=== PATIENT | male | born 1940 | race Caucasian/White ===

== ENCOUNTER 2025-01-25 09:51 | Observation (INO) | payer OTHER, SELFPAY ==
[2025-01-25] VITALS (36 sets, daily range): BP systolic 104–165; BP diastolic 41–123; PULSE 49–84; RESP 13–24; TEMP 35.9–36.5; O2SAT 83–99
--- NOTE | 2025-01-25 09:45 | RT.EKG_ITS ---
APPROVED REPORT Exam: Resting ECG Reason for Exam: possible stroke Patient Location: E HR:57 bpm ECG Measurements Heart Rate 57 AXIS NC [id number] P [id number] QRSd 94 QRS 82 QT [id number] T 90 QTc 0 Conclusion Atrial fibrillation...? atrial activity Anteroseptal infarct, age indeterminate...Q >35mS, T neg, V1-V2
--- NOTE | 2025-01-25 09:45 | DI.CT_ITS ---
Exam(s) CT BRAIN NECK CTA EXAM: CT BRAIN NECK CTA CLINICAL HISTORY: headache with right sided deficit at 830 am. TECHNIQUE: Imaging Protocol: Axial CT angiography was performed with multi-slice acquisition and mu lti-planar and/or 3D reconstructions. CONTRAST MATERIAL: Intravenous: Omnipaque 350 contrast volume:70 mL COMPARISON: No exams were available for comparison FINDINGS: CT Head W/O and W: Ventricles and Extra axial spaces: Normal in size and morphology for the patient's age. Incidental no te is made of a cavum septum pellucidum which is a normal variant. Hemorrhage: None. Cerebral parenchyma: There are areas of decreased attenuation in the white matter consistent with chr onic microvascular ischemic disease. No acute mass effect is visualized. Midline shift: None. Brainstem/Cerebellum: Normal. Calvarium: Normal. Visualized Paranasal sinuses/Mastoids: There are mucous retention cysts seen in the maxillary sinuses bilaterally. Soft Tissues: Unremarkable. Enhancement: Unremarkable. CTA Neck W: Common Carotid: Right: No dissection, occlusion or significant stenosis. Left: No dissection, occlusion or significant stenosis. External Carotid: Right: No occlusion or significant stenosis. Left: No occlusion or significant stenosis. Internal Carotid: Right: No dissection, occlusion or significant stenosis. Atherosclerotic calcification is seen in th e proximal internal carotid artery. Left: No dissection, occlusion or significant stenosis. Atherosclerotic calcification is seen in the proximal internal carotid artery. 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 Left: No dissection, occlusion or significant stenosis. Atherosclerotic calcification is seen at the origin of the left vertebral artery. Lung Apices: Normal. Bones: Within normal limits for the patient's age. Soft Tissues: Normal. Thyroid gland: There is a 1.5 x 1 cm nodule in the right thyroid gland. Nonemergent thyroid ultrasoun d is recommended for further evaluation. CTA Brain W: Internal Carotid Arteries: There is mild atherosclerotic calcifications seen in the cavernous portion of the internal carotid arteries. No aneurysm or occlusion or significant stenosis is present. Anterior Cerebral Arteries: Right: No aneurysm, occlusion or significant stenosis. Left: No aneurysm, occlusion or significant stenosis. Middle Cerebral Arteries: Right: No aneurysm, occlusion or significant stenosis. Left: No aneurysm, occlusion or significant stenosis. Posterior Cerebral Arteries: Right: No aneurysm, occlusion or significant stenosis. Left: No aneurysm, occlusion or significant stenosis. Vertebral Arteries: Right: No aneurysm, occlusion or significant stenosis. Left: No aneurysm, occlusion or significant stenosis. Basilar Artery: No aneurysm, occlusion or significant stenosis. IMPRESSION: 1. No large vessel occlusion or significant stenosis on the CT angiography of the head. 2. No acute intracranial process. 3. 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 4. Right thyroid nodule. Nonemergent thyroid ultrasound is recommended for further evaluation. Unexpected findings RADIATION DOSE DELIVERED: 2,264.97mGy.cm Total DLP DATA REPOSITORY: All CT scans at this facility are submitted to the National Radiology Data Registry (NRDR) Dose Index Registry (DIR) with the [employer] (ACR). RADIATION OPTIMIZATION: All CT scans at this facility use at least one of these dose optimization te chniques: automated exposure control; mA and/or kV adjustment per patient size (includes targeted exa ms where dose is matched to clinical indication); or iterative reconstruction.
--- NOTE | 2025-01-25 09:58 | DI.RAD_ITS ---
Exam(s) XR CHEST 1V IN DI DEPT EXAM: XR CHEST 1V IN DI DEPT CLINICAL HISTORY: amjs TECHNIQUE: 2D digital imaging was performed of the chest. One image was obtained. An AP view was ob tained. COMPARISON: No exams were available for comparison FINDINGS: MEDIASTINUM: Normal. HEART: Normal. PULMONARY VASCULATURE: Normal. LUNGS: No focal consolidating infiltrates. PLEURAL SPACE: No pleural effusion or pneumothorax. BONE:Within normal limits for the patient's age. OTHER FINDINGS:Normal. IMPRESSION: No acute pulmonary findings. DATA REPOSITORY: RADIATION DOSE DELIVERED:
[2025-01-25] MEDS: Omnipaque 350 MG/ML 100 ML BTL IJ (10:13)
[2025-01-25 10:15] LABS: Abs Immature Grans 0.09 10^3/uL (0.0-0.06); Absolute Basophil Count 0.06 10^3/uL (0.0-0.2); Absolute Eosinophil Count 0.07 10^3/uL (0.0-0.7); Absolute Lymphocyte Count 1.16 10^3/uL (1.2-3.4); Absolute Monocyte Count 0.71 10^3/uL (0.1-0.8); Absolute Neutrophil Count 7.88 10^3/uL (1.2-6.7); Basophils % 0.6 %; Eosinophils % 0.7 %; HCT 48.5 % (40.0-50.0); HGB 15.9 g/dL (13.5-17.5); Immature Grans % 0.9 %; Lymphocytes % 11.6 %; MCH 31.8 pg (27.0-33.0); MCHC 32.8 % (32.0-36.0); MCV 97 fL (80-95); MPV 10.8 fL (8.0-11.0); Monocytes % 7.1 %; Neutrophils % 79.1 %; Platelet Count 141 10^3/uL (130-400); RDW 13.4 % (11.8-14.1); WBC 9.97 10^3/uL (4.4-10.8)
[2025-01-25] MEDS: Normal Saline - Diluent 50 ML VIAL IJ (10:22)
[2025-01-25 10:35] LABS: ALT 23 U/L (16-63); AST 36 U/L (15-37); Albumin 3.3 g/dL (3.4-5.0); Alkaline Phosphatase 90 U/L (46-116); Anion Gap 5.4 mmol/L (3-11); BUN 34 mg/dL (7-18); Bilirubin, Total 0.7 mg/dL (0.2-1.0); CO2 28.6 mmol/L (21.0-32.0); CREATININE 1.3 mg/dL (0.70-1.30); Calcium 9.1 mg/dL (8.5-10.1); Chloride 106 mmol/L (98-107); Estimated GFR 54.17 (mL/min/1.73m2); Glucose 113 mg/dL (74-106); Magnesium 2.3 mg/dL (1.8-2.4); Potassium 5.8 mmol/L (3.5-5.1); Sodium 140 mmol/L (136-145); TSH (W/Ref FT4) 2.48 uIU/mL (0.36-3.74); Total Protein 6.9 g/dL (6.4-8.2); Troponin I 6 ng/L (<or=76)
--- NOTE | 2025-01-25 11:11 | NUR.NOTE ---
Nursing Note:med rec done w/ [facility] telepharm
[2025-01-25 11:23] LABS: Troponin I 7 ng/L (<or=76)
[2025-01-25] MEDS: LORazepam 20 MG/10 ML VIAL IVP (11:37)
--- NOTE | 2025-01-25 11:39 | TELEP.MEDR_ITS ---
Date of service: 01/25/25 Time of Service: 11:39 Telepharmacy Home Med Rec Allergies Allergies: No Known Allergies Allergy (Unverified 01/25/25 09:57) Interview Person Interviewed: Patient and [facility] Med List Quality Quality of Interview/Accuracy of Medication List: Good Changes made to Home Medication List: ADDITIONS: All, new profile DELETIONS: N/A CHANGES: N/A Additional Notes Additional Notes: Pt states he took AM medications at home today 01/25/25 Recommended Changes Recommended Changes(reason for recommendation): None Attestation: The home medication list is now updated to the best of my knowledge and is ready to be reconciled by the provider. Please contact the TelePharmacy Medication Reconciliation Pharmacist at for any questions.
--- NOTE | 2025-01-25 11:57 | HPE_ITS ---
Date of service: 01/25/25 Time of Service: 11:58 Assessment and Plan Assessment and plan (1) Stroke: Status: Chronic Assessment and plan: CTA head and neck negative for acute finding but shows vertebral artery occlusion with reconstitution MRI negative for acute findings Martha NORTON ED provider spoke with Dr. Brown who recommends Eliquis or Xarelto, echocardiogram, ongoing monitoring Echo ordered Eliquis High intensity statin ASA discontinued A1C Lipids telemetry ortho VS x 1 PT consult (2) HTN (hypertension): Status: Chronic Assessment and plan: permissive HNT x 24 hours to SBP 160 hold Norvasc (3) Hyperkalemia: Status: Acute Assessment and plan: Lokelma X 1 for K= 5.8- EKG negative for tall peaked T wave, HR 57 Aldactone on hold Repeat level at HS (4) Atrial fibrillation: Status: Chronic Assessment and plan: On metoprolol and now on Eliquis (5) Discharge planning issues: Status: Acute Assessment and plan: Plan to d/c home in AM PT recommendations pending Eliquis script sent CM aware Spoke to Patient's daughter Cee Dalton re: plan Discussed with Dr. Dunn History of Present Illness History of Present Illness Chief Complaint: Right sided weakness Narrative: This 83 years old male patient with past medical history of hypertension, atrial fibrillation on metoprolol and not on anticoagulation, presented to the ED today with complaints of right-sided weakness. EKG showed atrial fibrillation heart rate 57 without signs of clear occlusion with negative troponin. 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 Blood work was unremarkable except for hypokalemia at 5.8, CR 1.3 without baseline available. Hospitalist was consulted by ED provider and recommended MRI and neuroconsult. MRI is completed and report and teleneuro consult are pending. The patient was admitted to the medical surgical floor for further stroke workup; ASA and statin initiated in the ED. Confirmed DNR/DNI status, [facility] Patient denied change in vision, dizziness, chest pain, shortness of breath, nausea, vomiting, diarrhea, dysuria. Patient reported feeling off this morning lasting less than 45 minutes and with total resolution of symptoms in the emergency department. Review of Systems All systems reviewed & are unremarkable except as noted in HPI and below PFSH All Active Problems (Updated 01/25/25 @ 15:58 by Caitlyn Munoz APRN) Discharge planning issues (Acute) Hyperkalemia (Acute) Brain TIA (Acute) Atrial fibrillation (Chronic) On deep vein thrombosis (DVT) prophylaxis (Acute) HTN (hypertension) (Chronic) Stroke (Chronic) Social History Smoking/Tobacco Use Status: Never Smoking risk assessment performed?: Yes Alcohol Intake: former Substance use type: does not use Housing: house Do you feel safe at home: Yes Do you feel safe in your relationship?: Yes Meds Allergies and Home Medications Allergies Allergy/AdvReac Type Severity Reaction Status Date / Time No Known Allergies Allergy Unverified 01/25/25 09:57 Home Medications ?Medication ?Instructions ?Recorded ?Confirmed ?Type amlodipine 5 mg tablet 5 mg PO DAILY 01/25/25 01/25/25 History apixaban 5 mg tablet (Eliquis) 5 mg PO BID #60 tabs 01/25/25 Rx atorvastatin 40 mg tablet 80 mg (2 x 40 mg) PO QPM #60 tabs 01/25/25 Rx capsaicin 0.025 % topical cream 1 applic topical TID 01/25/25 01/25/25 History (Arthritis-Muscle (capsaicin)) metoprolol tartrate 50 mg tablet 50 mg PO BID 01/25/25 01/25/25 History spironolactone 25 mg tablet 25 mg PO DAILY 01/25/25 01/25/25 History Exam Narrative Exam Narrative: Constitutional: 84-year-old male patient looking older than stated age, no focal deficit, intact cranial nerves II through XII, moves all 4 extremities but cooler right foot to touch pink with cap refill about 4 seconds without pain, S1-S2, irregular, no murmur, positive pulses to all 4 extremities clear lungs bilaterally with decreased bases, abdomen is nondistended, soft nontender, bowel sounds are present, Results Labs 01/25/25 10:00 01/25/25 10:00 Labs: Laboratory Results - last 24 hr 01/25/25 01/25/25 10:00 10:58 WBC 9.97 RBC 5.00 Hgb 15.9 Hct 48.5 MCV 97 H MCH 31.8 MCHC 32.8 RDW 13.4 Plt Count 141 MPV 10.8 Immature Gran % 0.9 Neutrophils % 79.1 Lymphocytes % 11.6 Monocytes % 7.1 Eosinophils % 0.7 Basophils % 0.6 Nucleated RBC % 0.0 Absolute Neutrophils 7.88 H Absolute Lymphocytes 1.16 L Absolute Monocytes 0.71 Absolute Eosinophils 0.07 Absolute Basophils 0.06 Sodium 140 Potassium 5.8 H Chloride 106 Carbon Dioxide 28.6 Anion Gap 5.4 BUN 34 H Creatinine 1.3 Est GFR (CKD-EPI 2020) 54.17 Glucose 113 H Calcium 9.1 Magnesium 2.3 Total Bilirubin 0.7 AST 36 ALT 23 Alkaline Phosphatase 90 Troponin I 6 7 Total Protein 6.9 Albumin 3.3 L TSH 2.48 Last Vital Signs Temp 35.9 C L 01/25/25 09:52 Pulse 54 L 01/25/25 11:16 Resp 21 01/25/25 11:16 BP 152/77 H 01/25/25 11:16 Pulse Ox 98 01/25/25 11:16 Time Spent Time spent with Patient: >75 minutes Time was spent: preparing to see the patient(eg.review tests), obtaining and/or reviewing separately otained hiistory, ordering medications,tests, procedures, referring, communicating with other health aged or disabled care worker, indepentently interpreting results, counseling the patient and care coordination
--- NOTE | 2025-01-25 12:20 | DI.MRI_ITS ---
Exam(s) MR BRAIN WO EXAM: MR BRAIN WO CLINICAL HISTORY: vert TECHNIQUE: Multiplanar multisequence MRI of the brain was performed. COMPARISON: CT CT BRAIN NECK CTA from 01/25/2025 FINDINGS: The examination is limited due to patient motion artifact. VENTRICLES AND EXTRA AXIAL SPACES: Normal in size and morphology for the patient's age. Incidental no te is made of a cavum septum pellucidum which is a normal variant. MIDLINE SHIFT: None. CEREBRAL PARENCHYMA: No focus of restricted diffusion to suggest acute infarct. No space-occupying le eulogio identified. HEMORRHAGE: None. BRAINSTEM/CEREBELLUM: Normal. CALVARIUM: Normal. VISUALIZED PARANASAL SINUSES/MASTOIDS:Mucous retention cysts are seen in the maxillary sinuses bilate rally. [place]: Normal flow void. PITUITARY GLAND: Unremarkable. OTHER FINDINGS: None. IMPRESSION: 1. Examination is limited by patient motion artifact. 2. No evidence of an acute infarct. DATA REPOSITORY:
--- NOTE | 2025-01-25 12:25 | ED.GENADUL_ITS ---
Discharge Plan Disposition Patient Disposition: Admit to [facility] Condition: Serious Discharge Details Clinical Impression: Brain TIA Admit Date/Time: 01/25/25 12:54 Admit Provider: Leandro Dunn Attending Provider: Leandro Dunn Primary Care Provider: Марина Quintana ED Provider: Martha Daniel Discharge Data Discharge Date/Time-TO BE ENTERED AT DEPARTURE: 01/25/25 14:14 HPI General Date/Time Provider Initiated Documentation: 01/25/25 09:57 . HPI Narrative: 84-year-old male with hypertension presents with acute alteration in mental status at 0830 hours. Experienced lightheadedness, head pressure, difficulty using right arm and speech, resolved before EMS arrival. Episode lasted ~20 minutes. No chest pain, shortness of breath, headache, or similar episodes. No falls, injuries, new medications, or chronic anticoagulation. On spironolactone. Related Data Home Medications ?Medication ?Instructions ?Recorded ?Confirmed amlodipine 5 mg tablet 5 mg PO DAILY 01/25/25 01/25/25 capsaicin 0.025 % topical cream 1 applic topical TID 01/25/25 01/25/25 (Arthritis-Muscle (capsaicin)) metoprolol tartrate 50 mg tablet 50 mg PO BID 01/25/25 01/25/25 spironolactone 25 mg tablet 25 mg PO DAILY 01/25/25 01/25/25 Allergies Allergy/AdvReac Type Severity Reaction Status Date / Time No Known Allergies Allergy Unverified 01/25/25 09:57 General Stated Complaint: CVA/TIA KRAIG: 3 Exam Narrative Exam Narrative: General Appearance: Alert and oriented x4, answering questions appropriately. Vital signs: Within normal limits. HEENT: Pupils equal, round, reactive to light and accommodation. Extraocular muscles intact. Respiratory: Lungs clear to auscultation. Cardiovascular: Cardiac rate irregularly irregular, no murmur. Gastrointestinal: No abdominal tenderness. Extremities: Distal pulses intact. Sensation intact in all extremities. Skin: Warm and dry, no rash. Neurological: Negative raqcyk-[id number], heel vizcaino, and pronator drift tests. Cranial nerves II-XII intact. Psychiatric: Normal. Other observations: None. Course Vital Signs Vital signs: Vital Signs Temperature 35.9 C L 01/25/25 09:52 Pulse 58 L 01/25/25 09:52 Respiratory Rate 16 01/25/25 09:52 Blood Pressure 165/78 H 01/25/25 09:52 Pulse Oximetry 98 01/25/25 09:52 Temperature 35.9 C L 01/25/25 09:52 Temperature Source Tympanic 01/25/25 09:52 Pulse 54 L 01/25/25 11:16 Pulse 56 L 01/25/25 11:16 Respiratory Rate 21 01/25/25 11:16 Respiratory Effort Normal 01/25/25 10:35 Respiratory Depth Normal 01/25/25 10:35 Blood Pressure 152/77 H 01/25/25 11:16 Blood Pressure Mean 104 01/25/25 11:16 Pulse Oximetry 98 01/25/25 11:16 Lab/Test Results Lab/Test Results: Laboratory Tests Range/Units 01/25/25 01/25/25 10:00 10:58 WBC (4.4-10.8) 10^3/uL 9.97 RBC (4.36-5.78) 10^6/uL 5.00 Hgb (13.5-17.5) g/dL 15.9 Hct (40.0-50.0) % 48.5 MCV (80-95) fL 97 H MCH (27.0-33.0) pg 31.8 MCHC (32.0-36.0) % 32.8 RDW (11.8-14.1) % 13.4 Plt Count (130-400) 10^3/uL 141 MPV (8.0-11.0) fL 10.8 Immature Gran % % 0.9 Neutrophils % % 79.1 Lymphocytes % % 11.6 Monocytes % % 7.1 Eosinophils % % 0.7 Basophils % % 0.6 Nucleated RBC % (0.0-0.3) % 0.0 Absolute Neutrophils (1.2-6.7) 10^3/uL 7.88 H Absolute Lymphocytes (1.2-3.4) 10^3/uL 1.16 L Absolute Monocytes (0.1-0.8) 10^3/uL 0.71 Absolute Eosinophils (0.0-0.7) 10^3/uL 0.07 Absolute Basophils (0.0-0.2) 10^3/uL 0.06 Sodium (136-145) mmol/L 140 Potassium (3.5-5.1) mmol/L 5.8 H Chloride (98-107) mmol/L 106 Carbon Dioxide (21.0-32.0) mmol/L 28.6 Anion Gap (3-11) mmol/L 5.4 BUN (7-18) mg/dL 34 H Creatinine (0.70-1.30) mg/dL 1.3 Est GFR (CKD-EPI 2020) (mL/min/1.73m2) 54.17 Glucose (74-106) mg/dL 113 H Calcium (8.5-10.1) mg/dL 9.1 Magnesium (1.8-2.4) mg/dL 2.3 Total Bilirubin (0.2-1.0) mg/dL 0.7 AST (15-37) U/L 36 ALT (16-63) U/L 23 Alkaline Phosphatase (46-116) U/L 90 Troponin I (<or=76) ng/L 6 7 Total Protein (6.4-8.2) g/dL 6.9 Albumin (3.4-5.0) g/dL 3.3 L TSH (0.36-3.74) uIU/mL 2.48 Medical Decision Making Laboratory: Blood sugar 125, potassium 5.8, troponins negative x2, BUN 34. Imaging: CTA head and neck shows vertebral artery occlusion with reconstitution, no acute stroke or obstruction. MRI and chest x-ray show no acute abnormality. Testing: EKG shows atrial fibrillation, rate controlled. Stroke score 0. Initial Assessment: 84-year-old male with history of hypertension presents with acute alteration of mental status, lightheadedness, head pressure, difficulty using right arm and speech, resolved before EMS arrival, lasted approximately 20 minutes. No history of similar symptoms, falls, injuries, or new medications. Blood sugar 125 per EMS. Alert and oriented x4, cranial nerves II-XII intact. Cardiac rate irregularly irregular, lungs clear, no murmur, no abdominal tenderness, distal pulses intact, sensation intact in all extremities, answering questions appropriately, pupils equal, round, reactive to light and accommodation, extraocular muscles intact. ED Course: - CTA head and neck shows vertebral artery occlusion with reconstitution, no acute stroke or obstruction. MRI shows no acute abnormality. Per radiology interpretation, reviewed by me. - Teleneuro placed secondary to vascular anomaly. Case discussed with Dr. Hurtado, likely to accept patient pending teleneuro assessment. - Blood pressure stable. - Received 162 mg aspirin after swallow study and atorvastatin 80 mg after p.o. challenge. - Potassium elevated at 5.8, patient on spironolactone. Asymptomatic, will hold spironolactone. - EKG shows atrial fibrillation, rate controlled. No acute ischemia, troponins negative x2. - BUN 34, receiving fluids. - Chest x-ray per radiology interpretation, reviewed by me, without acute abnormality. - Admitted to hospitalist service for continued monitoring and observation pending teleneuro discussion. - Spoke with Dr. Brown recommends Eliquis or Xarelto, echocardiogram, continued monitoring Final Assessment: Patient presented with acute alteration of mental status, symptoms resolved before EMS arrival. Diagnostic imaging showed vertebral artery occlusion with reconstitution, no acute stroke or obstruction. Elevated potassium managed by holding spironolactone. Atrial fibrillation rate controlled, no acute ischemia. Admitted for monitoring and observation. Clinical Impression: - Acute alteration of mental status - Elevated potassium - Atrial fibrillation Disposition: - Admission: Admitted to hospitalist service for continued monitoring and observation pending teleneuro discussion. MDM Components Evaluation: - Number of Differential Diagnoses or Management Options: Acute alteration of mental status, elevated potassium, atrial fibrillation. - Amount and Complexity of Data Reviewed: CTA head and neck, MRI, EKG, troponins, BUN, chest x-ray. - Risk of Complication and Morbidity or Mortality: Moderate risk due to acute alteration of mental status, elevated potassium, and atrial fibrillation. Quality:[facility] Health Related Social Needs: No Data to Display PFSH All Active Problems (Updated 01/25/25 @ 15:44 by ERROL Floyd) Brain TIA (Acute) Atrial fibrillation (Chronic) On deep vein thrombosis (DVT) prophylaxis (Acute) HTN (hypertension) (Chronic) Stroke (Chronic) Social History Smoking/Tobacco Use Status: Never Smoking risk assessment performed?: Yes Alcohol Intake: former Substance use type: does not use Housing: house Do you feel safe at home: Yes Do you feel safe in your relationship?: Yes
[2025-01-25] MEDS: Aspirin 81 MG CHEW 162 MG PO (12:28)
[2025-01-25] MEDS: Atorvastatin 40 MG TAB 80 MG PO (12:28)
[2025-01-25 13:09] LABS: Calculated LDL 130 mg/dL (<100); Cholesterol 210 mg/dL (<200); HDL Cholesterol 65 mg/dL (>or=40); Triglyceride 76 mg/dL (<150)
[2025-01-25] MEDS: Apixaban 5 MG TAB PO ×2 (13:11→19:32)
[2025-01-25] MEDS: Sodium Zirconium Cyclosilicate 10 GM PKT PO (13:11)
--- NOTE | 2025-01-25 13:54 | W.PC.ACHO ---
Registration Status: Primary Language: Preferred Language: ED Information & Data Chief Complaint CVA/TIA 01/25/25 12:26 Triage Note s/s started ~0830, 01/25/25 09:52 everything was normal, sudden onset head ache, sweaty, trying to talk and couldnt. s/s resolved prior to ems arrival. hr did drop to 42. BS 125. hx of afib. Most Recent Vital Signs Temperature 35.9 C L 01/25/25 09:52 Temperature Source Tympanic 01/25/25 09:52 Pulse 60 01/25/25 13:03 Pulse 63 01/25/25 13:03 Respiratory Rate 21 01/25/25 13:03 Respiratory Effort Normal 01/25/25 10:35 Respiratory Depth Normal 01/25/25 10:35 Blood Pressure 138/67 01/25/25 13:03 Blood Pressure Mean 92 01/25/25 13:03 Pulse Oximetry 97 01/25/25 13:00 Allergies No Known Allergies Allergy (Unverified 01/25/25 09:57) Precautions Isolation Standard precaution 01/25/25 10:35 Active Medications Generic Name Dose Route Start Last Admin Trade Name Freq PRN Reason Stop Dose Admin Apixaban 5 mg 01/25/25 12:55 01/25/25 13:11 Apixaban 5 Mg Tab PO 5 mg BID GABRIELLA Administration Iohexol 100 ml 01/25/25 10:15 01/25/25 10:13 Omnipaque 350 Mg/Ml 100 Ml Btl IJ 02/24/25 23:59 70 ml DIRECTED GABRIELLA Administration Sodium Chloride 50 ml 01/25/25 10:30 01/25/25 10:22 Normal Saline - Diluent 50 Ml Vial IJ 50 ml .FOR DI USE GABRIELLA Administration IV IV Catheter Type [Left Forearm Peripheral IV ] IV Catheter Gauge [Left 20 Forearm] Diagnostics 01/25/25 01/25/25 01/25/25 Range/Units 12:25 10:58 10:00 WBC 9.97 (4.4-10.8) 10^3/uL RBC 5.00 (4.36-5.78) 10^6/uL Hgb 15.9 (13.5-17.5) g/dL Hct 48.5 (40.0-50.0) % MCV 97 H (80-95) fL MCH 31.8 (27.0-33.0) pg MCHC 32.8 (32.0-36.0) % RDW 13.4 (11.8-14.1) % Plt Count 141 (130-400) 10^3/uL MPV 10.8 (8.0-11.0) fL Immature Gran % 0.9 % Neutrophils % 79.1 % Lymphocytes % 11.6 % Monocytes % 7.1 % Eosinophils % 0.7 % Basophils % 0.6 % Nucleated RBC % 0.0 (0.0-0.3) % Absolute Neutrophils 7.88 H (1.2-6.7) 10^3/uL Absolute Lymphocytes 1.16 L (1.2-3.4) 10^3/uL Absolute Monocytes 0.71 (0.1-0.8) 10^3/uL Absolute Eosinophils 0.07 (0.0-0.7) 10^3/uL Absolute Basophils 0.06 (0.0-0.2) 10^3/uL Sodium 140 (136-145) mmol/L Potassium 5.8 H (3.5-5.1) mmol/L Chloride 106 (98-107) mmol/L Carbon Dioxide 28.6 (21.0-32.0) mmol/L Anion Gap 5.4 (3-11) mmol/L BUN 34 H (7-18) mg/dL Creatinine 1.3 (0.70-1.30) mg/dL Est GFR (CKD-EPI 2020) 54.17 (mL/min/1.73m2) Glucose 113 H (74-106) mg/dL Hemoglobin A1c Pending Calcium 9.1 (8.5-10.1) mg/dL Magnesium 2.3 (1.8-2.4) mg/dL Total Bilirubin 0.7 (0.2-1.0) mg/dL AST 36 (15-37) U/L ALT 23 (16-63) U/L Alkaline Phosphatase 90 (46-116) U/L Troponin I 7 6 (<or=76) ng/L Total Protein 6.9 (6.4-8.2) g/dL Albumin 3.3 L (3.4-5.0) g/dL Triglycerides 76 (<150) mg/dL Total Cholesterol 210 H (<200) mg/dL LDL Cholesterol, Calc 130 H (<100) mg/dL HDL Cholesterol 65 H (>or=40) mg/dL TSH 2.48 (0.36-3.74) uIU/mL [id number] Documentation Fingerstick Glucose Start: 01/25/25 10:10 Freq: Status: Active Protocol: Activity Type Activity Date Activity User E-sign Co-sign Detail Recorded Client Recorded Date Recorded By Document 01/25/25 10:08 BKG DAEMON(3) [id number] 01/25/25 10:10 BKG DAEMON(4) Intake and Output - 24 Hour Total 01/25/25 09:41 thru 01/25/25 09:52 Weight 99 kg Falls Risk Assessment History of Falls No History 01/25/25 10:35 Contributing Factors No Factors 01/25/25 10:35 Ambulatory Aids Uses ambulatory device 01/25/25 10:35 Tubes/Lines With any additional score 01/25/25 10:35 Gait Evaluation No gait disturbance 01/25/25 10:35 Cognition No cognitive impairment 01/25/25 10:35 Fall Total Score 35 01/25/25 10:35 Level of Risk Moderate Risk 01/25/25 10:35 Problems On deep vein thrombosis (DVT) prophylaxis (Acute) HTN (hypertension) (Chronic) Stroke (Chronic) Notes 01/25/25 11:11 Nursing Notes by Sherri Teague Nursing Note:med rec done w/ [facility] telepharm Initialized on 01/25/25 11:11 - END OF NOTE v v v v v v v v v Sending and/or Receiving Nurses: Please use comment section below to note any information pertinent to the patient hand-off not included above. Information / Comments: Report received from: anurag
[2025-01-25 14:29] LABS: Hemoglobin A1C 5.7 % (<5.7)
[2025-01-25] MEDS: Metoprolol 50 MG TAB PO (19:32)
[2025-01-25] MEDS: Normal Saline Flush 10 ML SYR IVP (19:32)
--- NOTE | 2025-01-25 23:01 | W.PM.PROGNOT ---
Date of Service Date of service: 01/25/25 Time of Service: 23:01 Subjective Subjective Interval history since last seen: Low heart rate. Nurse reported telemetry showing heart rate as low as 30 to 32 bpm. Will hold metoprolol for now. Continue to monitor on telemetry. Objective Last Vital Signs Temp 36.5 C 01/25/25 19:12 Pulse 60 01/25/25 19:12 Resp 19 01/25/25 19:12 BP 131/62 01/25/25 19:12 Pulse Ox 96 01/25/25 19:12 Laboratory Results - last 24 hr 01/25/25 01/25/25 01/25/25 10:00 10:58 12:25 WBC 9.97 RBC 5.00 Hgb 15.9 Hct 48.5 MCV 97 H MCH 31.8 MCHC 32.8 RDW 13.4 Plt Count 141 MPV 10.8 Immature Gran % 0.9 Neutrophils % 79.1 Lymphocytes % 11.6 Monocytes % 7.1 Eosinophils % 0.7 Basophils % 0.6 Nucleated RBC % 0.0 Absolute Neutrophils 7.88 H Absolute Lymphocytes 1.16 L Absolute Monocytes 0.71 Absolute Eosinophils 0.07 Absolute Basophils 0.06 Sodium 140 Potassium 5.8 H Chloride 106 Carbon Dioxide 28.6 Anion Gap 5.4 BUN 34 H Creatinine 1.3 Est GFR (CKD-EPI 2020) 54.17 Glucose 113 H Hemoglobin A1c 5.7 Calcium 9.1 Magnesium 2.3 Total Bilirubin 0.7 AST 36 ALT 23 Alkaline Phosphatase 90 Troponin I 6 7 Total Protein 6.9 Albumin 3.3 L Triglycerides 76 Total Cholesterol 210 H LDL Cholesterol, Calc 130 H HDL Cholesterol 65 H TSH 2.48 Time Spent with Patient Time Spent with Patient: <25 minutes Time was spent: obtaining and/or reviewing separately otained hiistory and ordering medications,tests, procedures
[2025-01-26 00:04] VITALS: BP 103/58; PULSE 55; RESP 19; TEMP 36.3; O2SAT 93
[2025-01-26 03:10] VITALS: BP 111/52; PULSE 48; RESP 19; TEMP 36.1; O2SAT 94
[2025-01-26 07:23] VITALS: BP 118/68; PULSE 49; RESP 16; TEMP 36; O2SAT 99
[2025-01-26] MEDS: Aspirin E.C. 81 MG TABEC PO (08:13)
[2025-01-26] MEDS: Apixaban 5 MG TAB PO (08:13)
[2025-01-26] MEDS: Normal Saline Flush 10 ML SYR IVP (08:13)
[2025-01-26 11:19] VITALS: BP 143/70; PULSE 57; RESP 16; TEMP 36; O2SAT 98
--- NOTE | 2025-01-26 11:21 | CMDISCH_ITS ---
Date of service: 01/26/25 Time of Service: 14:10 LACE Index Scoring Tool Questions: Length of Stay (in days): 1 Was the patient admitted via the E.D.?: Yes E.D. Visits: 1 Answers: Total Score: 5 Risk of Readmission: Low Risk Care Management Discharge Plan Reason for Hospitalization: Stroke Discharge Plan: Leandro will be d/c home with no new services. He will follow up with community providers and plan of care. Leandro has an appointment 01/27/25 at the [facility], for a mass on his arm, and participates in outpatient PT through them as well. He will transport in a private vehicle by family. 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 Patient/Family Education Needs: Review of discharge instructions, activity, limitations, and plan of care. Discuss Ask Me [facility] Health Related Social Needs: No Data to Display
--- NOTE | 2025-01-26 12:53 | W.PM.DS.N ---
Date of service: 01/26/25 Time of Service: 12:53 DS: Diagnosis Discharge Diagnosis (1) Stroke: Status: Chronic (2) HTN (hypertension): Status: Chronic (3) Hyperkalemia: Status: Acute (4) Atrial fibrillation: Status: Chronic (5) Discharge planning issues: Status: Acute Discharge Plan Disposition Patient Disposition: Home Condition: Improving Discharge Details Reason For Visit: stroke Admit Date/Time: 01/25/25 12:54 Admit Provider: Leandro Dunn Attending Provider: Leandro Dunn Primary Care Provider: Марина Quintana Hospital Course Hospital Course: This 83 years old male patient with past medical history of hypertension, atrial fibrillation on metoprolol and not on anticoagulation, presented to the ED today with complaints of right-sided weakness. EKG showed atrial fibrillation heart rate 57 without signs of clear occlusion with negative troponin. 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 Blood work was unremarkable except for hypokalemia at 5.8 treated with lokelma, CR 1.3 without baseline available. The hospitalist was consulted by ED provider and the patient was admitted to the medical surgical floor for further stroke workup. ASA and statin initiated in the ED. Recommended MRI was negative and tele-neuro consultation recommendation was for NOAC and statin therapy, Eliquis initiated and ASA stopped. [id number] score close 13.6% and HASBLED score 4% explained to patient with acceptance of Eliquis. LDL 130, A1C 5.7. Echocardiogram showed and LVEF of 60-65% without significant abnormality but was unable to evaluate diastolic function. Metoprolol dose decreased to 25 mg oral twice a day d/t - SVR HR 32 overnight, HR this AM 49- 57. Aldactone to be restarted on Thursday, potassium at is 4.3 today . As per discussion with Dr. Марина Quintana MD, H&P to be faxed and she will proceed to order the patient's new medicines. Pharmacy will dispense a 2-day supply of Eliquis to patient. Scripts sent to requested pharmacy as per patient. Patient to resume outpatient physical therapy. Recommendation for PCP follow-up: Metoprolol adjustment CMP needed Approval for neurology to be seen at [facility] needed, please Discussed with Dr Dunn Home Meds and New Rx's Prescriptions: New atorvastatin 40 mg Tablet 80 mg PO QPM Qty: 60 0RF Eliquis 5 mg Tablet 5 mg PO BID Qty: 60 0RF Continued capsaicin [Arthritis-Muscle (capsaicin)] 0.025 % cream 1 applic topical TID Rx Instructions: do not wash area for at least 30 min after application amlodipine 5 mg tablet 5 mg PO DAILY Changed metoprolol tartrate 50 mg tablet 25 mg PO BID Qty: 0 0RF Held spironolactone 25 mg tablet 25 mg PO DAILY Hold Instructions: Resume on 01/28/25. Restart on Thursday Discharge Instructions Stand Alone Forms: Nursing Discharge Form Referrals: Марина Quintana [Primary Care Provider] - (F/u within 7 days of discharge please- [facility] , they said they will call the patient back with an appointment. ) Lesley Abel MD [ [facility] STAFF PHYSICIAN] - (F/u within 1-2 weeks please. Called and they will reach out with appointment. ) Activity:: Activity as Tolerated Equipment/Supplies:: No Equipment Needed Diet:: heart healthy Discharge Orders Discharge Orders: Discharge Order (Routine); Ordered 01/26/25 Ordered By: Caitlyn Munoz DS: Summary Time Spent with Patient providing and/or coordinating discharge services: Greater than 30 minutes Status at Discharge Functional status at discharge: independent ambulation Overall status at discharge: patient is progressing back to baseline Mental Status: mental status grossly normal Speech and Movement: speech and movement normal Mood: congruent mood Affect: normal affect Quality:SDOH Health Related Social Needs: No Data to Display Exam Narrative Exam Narrative: Constitutional: 84-year-old male patient looking older than stated age, no focal deficit, moves all 4 extremities, S1-S2, irregular, no murmur, positive pulses to all 4 extremities clear lungs bilaterally with decreased bases, abdomen is non-distended, soft non-tender, bowel sounds are present, Psych Mental Status: mental status grossly normal Speech and Movement: speech and movement normal Mood: congruent mood Affect: normal affect DS: Data Vitals/I&O Vitals and I&O: Vital Signs Temperature 36.0 C L 01/26/25 11:19 Temperature Source Temporal Artery Scan 01/26/25 11:19 Pulse 57 L 01/26/25 11:19 Pulse Rhythm Irregular 01/25/25 14:29 Pulse 63 01/25/25 13:03 Respiratory Rate 16 01/26/25 11:19 Respiratory Effort Normal 01/25/25 14:29 Respiratory Depth Normal 01/25/25 14:29 Respiratory Pattern Normal 01/25/25 14:29 Blood Pressure 143/70 H 01/26/25 11:19 Blood Pressure Mean 94 01/26/25 11:19 Pulse Oximetry 98 01/26/25 11:19 Oxygen Delivery Method Room Air 01/26/25 11:19 Oxygen Flow Rate 0 01/26/25 11:19 Pain Level 0 01/26/25 11:19 Comment RN notified 01/25/25 16:32 Intake & Output 01/25/25 01/26/25 01/26/25 23:59 11:59 23:59 Output Total 450 / 450 400 / 400 Balance -450 / -450 -400 / -400 Weight 81.647 kg Output: Urine 450 / 450 400 / 400 Other: Urine Color Yellow Yellow Urine Appearance Clear Clear Comment pt has been voiding independently, no issues reported Stool Characteristics Brown Data Completed and Pending Labs on day of discharge: Labs from last 24 hours 01/26/25 12:34: Sodium Pending, Potassium Pending, Chloride Pending, Carbon Dioxide Pending, Anion Gap Pending, BUN Pending, Creatinine Pending, Est GFR (CKD-EPI 2020) Pending, Glucose Pending, Calcium Pending 01/25/25 12:25: Triglycerides 76, Total Cholesterol 210 H, LDL Cholesterol, Calc 130 H, HDL Cholesterol 65 H 01/25/25 10:00: Hemoglobin A1c 5.7 PFSH All Active Problems (Updated 01/25/25 @ 15:58 by Caitlyn Munoz APRN) Discharge planning issues (Acute) Hyperkalemia (Acute) Brain TIA (Acute) Atrial fibrillation (Chronic) On deep vein thrombosis (DVT) prophylaxis (Acute) HTN (hypertension) (Chronic) Stroke (Chronic) Social History Smoking/Tobacco Use Status: Never Smoking risk assessment performed?: Yes Alcohol Intake: former Substance use type: does not use Housing: house Do you feel safe at home: Yes Do you feel safe in your relationship?: Yes Time Spent with Patient Time Spent with Patient: 70-84 minutes4 Time was spent: preparing to see the patient(eg.review tests), obtaining and/or reviewing separately otained hiistory, ordering medications,tests, procedures, referring, communicating with other health reproductive healthcare assistant, indepentently interpreting results, counseling the patient and care coordination
[2025-01-26 13:02] LABS: Anion Gap 5.1 mmol/L (3-11); BUN 31 mg/dL (7-18); CO2 27.9 mmol/L (21.0-32.0); CREATININE 1.3 mg/dL (0.70-1.30); Calcium 9.4 mg/dL (8.5-10.1); Chloride 105 mmol/L (98-107); Estimated GFR 54.17 (mL/min/1.73m2); Glucose 123 mg/dL (74-106); Potassium 4.3 mmol/L (3.5-5.1); Sodium 138 mmol/L (136-145)
--- NOTE | 2025-01-26 13:09 | IN_ITS ---
PT Notes Visit Reasons: stroke Physical Therapy Inpatient Initial Evaluation Date: 01/26/2025 Referring Doctor: Caitlyn Munoz APRN PT Orders: PT CONSULT: Safety Consult for discharge Precautions: fall risk , Telemetry, IV access Patient Profile/Admitting Diagnosis: Pt is 84 yo male presented to ED after epis ode of sudden onset of right sided weakness at home. This resolved before EMS arrived. 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 MRI showed no acute abnormalities. Teleneuro recommended ECHO and start Eliquis or Xarelto. PT Consult placed for safety PMHX: Afib, HTN, CVA. Social History/Home Situation: lives with 5 steps to enter with rails. Independent without device ambulation, independent ADL. does laundry and meal prep. Pt attending outpatient PT at this time for gait instability and balance. Equipment Owned/DME: none Subjective: Pt reports I am waiting to get out of here. Objective: [] General Observation:male seated in chair with his family present. Mental Status: Alert and Ox4, able to follow instructions, agreeable to participate Pain: denies ROM: [] BLE : WFL with hip extension 5 degrees Strength: [] Right Upper Extremity: 5/5 Left Upper Extremity: 4/5 Right Lower Extremity: hip 4/5 knee 4/5, ankle 4/5 Left Lower Extremity: hip 3+/5, knee 4/5, ankle 4/5 Sensation: intact Coordination: reduced speed with Left foot KARENA, decreased accuracy finger opposition and finger to nose. Bed Mobility/Transfers: Supine to sit Independent Sit to stand Independent Stand to sit Independent Bed to chair Independent no device Gait: SBA 200 feet without AD one episode of stagger step to the right with turn to the right . Pt able to regain without external support Stairs: 3 4 steps? and 2 6 steps with rails SBA reciprocal pattern x 2 trials Balance: [] Static Sitting: Normal Dynamic Sitting: Good Static Standing: Good + Dynamic Standing: good- Special Tests: 4 STAGE BALANCE TEST: Feet together 27 seconds 1/2 Stance left foot back 24 seconds; right foot back 9 sec Tandem stance : Left back 9 seconds excessive sway;, right back unable to assume full position Single leg stance left 3 seconds, right 9 seconds Mobility Limitations Standardized Measure [] [facility] [employer] AM-PAC 6 clicks Basic Mobility Inpatient Short Form: [] Raw Score: 24 CMS Score: 0% Informed Consent/Education: Patient instructed in purpose of PT consult. Assessment: Patient is an 84 yo male presenting s/p episode of right sided weakness now resolved. Pt demonstrates impaired single limb balance and balance reactions with narrow SASKIA. Pt also noted with slight reduced speed with LLE KARENA.decreased accuracy with finger opposition and finger to nose. Patient presents with clinical signs and symptoms consistent with current/admitting diagnoses that have resulted to mobility limitations, gait instability, generalized weakness, and impairment of motor control as demonstrated by the following impairment level findings: 1. Decreased strength to BLE major muscle groups 2. Impaired standing balance 3. impaired coordination Impairments are contributing to the following functional limitations: 1. Increase completion time for mobility ADL performance 2. Increased fall risk Patient is assessed as a moderate complexity based on the following: History: Leandro is an 84-year-old male with impairment level findings, functional limitations, and past medical history as indicated above Examination: Demonstrable impairment in strength, balance, and mobility level with underlying impairments and functional limitations as documented above Presentation: stable / evolving Decision Making: moderate Goals: N/A. PT evaluation and 1-2 treatment sessions only for functional mobility training using recommended AD and for HEP instruction. Plan of Care/Treatment Plan: N/A. PT evaluation and 1-2 treatment session only for functional mobility training using recommended AD and for HEP instruction. DISCHARGE RECOMMENDATIONS: Home with return to Outpatient PT TREATMENT CODE/TIME: [id number] Thank you for the opportunity to participate in the care of this patient. Shannon Mayers PT [facility]
--- NOTE | 2025-01-26 16:07 | CHAPLAIN ---
Leandro was up in the chair, dressed in his bathrobe, when I visited he told me that he's hoping to be discharged soon and his would be here to pick him up. He's originally from [place], [place], and came to the area to work at the [employer] and retired to [employer].
== END 2025-01-26 14:40 | disposition home or self-care (01) ==
LOC: ER 11:44 → MS 15:43
PROVIDERS: Admitting Provider Family Medicine; Emergency Provider Physician Assistant; PCP Internal Medicine; Responsible Provider Nurse Practitioner Acute Care; Visit Provider Family Medicine
DX: I63.211 Cerebral infarction due to unspecified occlusion or stenosis of right vertebral artery (principal); I10 Essential (primary) hypertension; E87.5 Hyperkalemia; R00.1 Bradycardia, unspecified; I48.91 Unspecified atrial fibrillation; Z79.899 Other long term (current) drug therapy; Z66 Do not resuscitate
CPT/HCPCS: 00123; 36415; 36416; 70496; 70498; 80048; 80053; 80061; 82962; 93005; 96374; 97162; 99285; 70551; 71045; 83036; 83735; 84443; 84484; 85025; 93010; 93306; 99223; 99239; G0378; J2060; J3490

== ENCOUNTER 2025-05-09 07:15 | Emergency (ER) | payer OTHER, SELFPAY ==
[2025-05-09 07:16] VITALS: BP 161/70; PULSE 57; RESP 16; TEMP 36.1; O2SAT 99
--- NOTE | 2025-05-09 07:45 | DI.CT_ITS ---
Exam(s) CT LUMBAR SPINE WO EXAM: CT LUMBAR SPINE WO CLINICAL HISTORY: Right sacroiliac pain. TECHNIQUE: Imaging Protocol: Axial computed tomography images with coronal and sagittal reformatted images were created and reviewed COMPARISON: No exams were available for comparison FINDINGS: Bones: The last intervertebral disc space is designated the L5/S1 level for the numbering purpose of this examination. There is no evidence of ankylosis or erosion seen in the sacroiliac joint. Degenerative changes are present. There are no findings to suggest insufficiency fracture. No suspicious lytic or sclerotic lesions are seen. There are syndesmophytes throughout the spine. Degenerative changes of the facets are present throughout, particularly at L3-4 through L5-S1. Alignment is satisfactory. No fracture is seen. T12-L1: No disc herniations or bulges are present. No central spinal canal or neural foraminal stenosis. L1-2: No disc herniations or bulges are present. No central spinal canal or neural foraminal stenosis. L2-3: No disc herniations or bulges are present. No central spinal canal or neural foraminal stenosis. L3-4: There is a mild diffuse disc bulge. No central spinal canal or neural foraminal stenosis. L4-5: There is a diffuse disc bulge. This in conjunction with the facet arthropathy cause marked central spinal canal stenosis. There is mild bilateral neural foraminal stenosis. L5-S1: No disc herniations or bulges are present. There is no significant central spinal canal stenosis. There is bilateral [id number] neural foraminal stenosis secondary to the facet arthropathy. Soft Tissues: The visualized SI joints and sacrum are will maintained. There are cysts seen in the kidneys. They appear simple. No follow-up is recommended. IMPRESSION: 1. No acute abnormality is seen in the sacroiliac joints. 2. 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 3. Diffuse disc bulge and degenerative changes at L4-L5 causing marked central spinal canal stenosis. There is mild bilateral neural foraminal stenosis at this level. RADIATION DOSE DELIVERED: 843.99mGy.cm Total DLP 843.99mGy.cm Total DLP DATA REPOSITORY: All CT scans at this facility are submitted to the National Radiology Data Registry (NRDR) Dose Index Registry (DIR) with the [employer] (A[employer]). RADIATION OPTIMIZATION: All CT scans at this facility use at least one of these dose optimization techniques: automated exposure control; mA and/or kV adjustment per patient size (includes targeted exams where dose is matched to clinical indication); or iterative reconstruction.
--- NOTE | 2025-05-09 08:00 | ED.GENADUL_ITS ---
Discharge Plan Disposition Patient Disposition: Against Medical Advice Discharge Details Clinical Impression: Back pain, Sacroiliac joint pain, Difficulty in walking, Abnormal findings on diagnostic imaging of spine Primary Care Provider: Марина Quintana ED Provider: Karthikeyan Lynne Home Meds and New Rx's Prescriptions: New oxycodone 5 mg capsule 2.5 mg PO Q6H PRNQty: 7 0RF Continued aspirin [Adult Low Dose Aspirin] 81 mg tablet,delayed release (DR/EC) 81 mg PO DAILY amlodipine 5 mg tablet 5 mg PO DAILY spironolactone 25 mg tablet 25 mg PO DAILY metoprolol tartrate 50 mg tablet 25 mg PO BID Qty: 0 0RF Discharge Instructions Instructions: Sacroiliac Joint Pain, How to Use a Walker, Low Back Pain ED Additional Instructions: As discussed, you are leaving AGAINST MEDICAL ADVICE as I am concerned that you may have sustained a spinal cord injury. You have abnormal CT imaging of your spine, and I cannot say without certainty if it is related to the symptoms you. Up given that you have suddenly had difficulty walking, I would recommend that we transfer you to a facility capable of both MRI and neurosurgical or spinal surgery, as this may be a reversible cause of your symptoms however any delay in diagnosis and treatment may result in permanent disability or paralysis. You refused to transfer at this time. As such, please follow-up with your primary care provider regarding your visit to the emergency department today. Be sure to discuss results of all test performed here today to include radiology, and laboratory testing as well as results for any pending cultures. Should your symptoms worsen, or if you develop new concerning symptoms, please return immediately emergency department for further evaluation. HPI General Date/Time Provider Initiated Documentation: 05/09/25 07:21 . HPI Narrative: MDM/Narrative: Initial Assessment: 84-year-old male with back pain localized to SI joint, onset yesterday after standing up. No associated leg pain, numbness, weakness, urinary difficulties, bowel control loss, fevers, or chills. Differential Diagnosis: - Musculoskeletal strain: Recent use of wheeled walker and physical activity. Imaging to rule out structural abnormalities. Physical therapy assessment. - Sacroiliac joint dysfunction: Pain localized to SI joint. CT Imaging to investigate further. Physical therapy assessment. - Acute spinal cord syndrome: No midline back pain no appreciable weakness on exam or other red flag symptoms. However given patient's age and acute onset of difficulty ambulating, will obtain CT imaging to determine if MRI would be indicated. ED Course: - Tylenol administered upon arrival, will add 2.5 mg oxycodone PO now. - Imaging ordered for SI joint - Physical therapy team consulted for mobility assessment 9:14 AM Patient evaluated with physical therapy. Able to ambulate with out assistance while using a walker, able to sit down and toilet, with minimal pain. Results reviewed. CT shows significant spinal canal stenosis at L4-L5. These results were shared with and discussed with the patient. I explained to him I was concerned this could represent a spinal cord compression which is causing his difficulty ambulate. I recommended that we make attempts to transfer him to a neurosurgical/spine surgery capable center for MRI and further evaluation. However at this time, patient is not interested in transfer or acute surgery. I explained to him the risk that this may result in debilitating chronic weakness, or even paralysis of both legs. However patient is adamant that he does not want to undergo transfer. He would prefer to return home. As such we will provide a walker, and physical therapy teams arrange for outpatient physical therapy. Reviewed return indications such as worsening weakness, pain, bowel or bladder incontinence or retention, paralysis. Patient will be leaving AGAINST MEDICAL ADVICE. Final Assessment: Right SI joint pain Difficulty ambulating Abnormal spinal imaging This document was created with assistance from [employer] The patient consented to its use. Disposition: AMA HPI: The patient is an 84-year-old male with a history of transient ischemic attack (TIA) and melanoma, presenting with acute back pain. The patient reports a history of intermittent back pain, with the most recent episode being particularly severe. The pain began suddenly on 05/08/2025 while rising from a table and is localized to the right lower back, described as discomfort. He denies any radicular pain, paresthesia, muscle weakness, urinary retention, or fecal incontinence. Additionally, he reports no pyrexia or chills. 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 He has not experienced any recent falls. He notes experiencing weakness upon standing, necessitating sitting down for relief. Acetaminophen was administered upon arrival. The patient is currently taking low-dose aspirin, with the last dose taken on 05/08/2025. He is not taking apixaban due to a predisposition to bleeding. He has no history of gastrointestinal hemorrhage or hematemesis. The patient experienced a TIA in the spring, which lasted approximately 5 minutes. He had a melanoma excised from his arm, with no evidence of metastasis. Recent thyroid function tests returned negative results. ROS: Negative besides as mentioned above Exam: Vital signs: Reviewed. General Appearance: Alert and oriented. No acute distress. HEENT: NCAT, EOMI, not icteric. External ears normal. No rhinorrhea. Moist mucous membranes. Neck: Supple, full range of motion, no observable masses, No meningeal sign. Respiratory: No Respiratory distress. No tachypnea. Cardiovascular: RRR, no edema. Gastrointestinal: Soft, nondistended, No rebound tenderness. Back: Tenderness in right sacroiliac joint without C/T/L spinal pain on palpation, no step-offs. Skin: Warm and dry, no rash. Neurological: Motor strength is 5/5 and symmetric throughout the BLE. Psychiatric: Appropriate for situation. Radiology: Exam(s) CT LUMBAR SPINE WO EXAM: CT LUMBAR SPINE WO CLINICAL HISTORY: Right sacroiliac pain. TECHNIQUE: Imaging Protocol: Axial computed tomography images with coronal and sagittal reformatted images were created and reviewed COMPARISON: No exams were available for comparison FINDINGS: Bones: The last intervertebral disc space is designated the L5/S1 level for the numbering purpose of this examination. There is no evidence of ankylosis or erosion seen in the sacroiliac joint. Degenerative changes are present. There are no findings to suggest insufficiency fracture. No suspicious lytic or sclerotic lesions are seen. There are syndesmophytes throughout the spine. Degenerative changes of the facets are present throughout, particularly at L3-4 through L5-S1. Alignment is satisfactory. No fracture is seen. T12-L1: No disc herniations or bulges are present. No central spinal canal or neural foraminal stenosis. L1-2: No disc herniations or bulges are present. No central spinal canal or neural foraminal stenosis. L2-3: No disc herniations or bulges are present. No central spinal canal or neural foraminal stenosis. L3-4: There is a mild diffuse disc bulge. No central spinal canal or neural foraminal stenosis. L4-5: There is a diffuse disc bulge. This in conjunction with the facet arthropathy cause marked central spinal canal stenosis. There is mild bilateral neural foraminal stenosis. L5-S1: No disc herniations or bulges are present. There is no significant central spinal canal stenosis. There is bilateral [id number] neural foraminal stenosis secondary to the facet arthropathy. Soft Tissues: The visualized SI joints and sacrum are will maintained. There are cysts seen in the kidneys. They appear simple. No follow-up is recommended. IMPRESSION: 1. No acute abnormality is seen in the sacroiliac joints. 2. 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 3. Diffuse disc bulge and degenerative changes at L4-L5 causing marked central spinal canal stenosis. There is mild bilateral neural foraminal stenosis at this level. RADIATION DOSE DELIVERED: 843.99mGy.cm Total DLP 843.99mGy.cm Total DLP DATA REPOSITORY: All CT scans at this facility are submitted to the National Radiology Data Registry (NRDR) Dose Index Registry (DIR) with the [employer] (ACR). RADIATION OPTIMIZATION: All CT scans at this facility use at least one of these dose optimization techniques: automated exposure control; mA and/or kV adjustment per patient size (includes targeted exams where dose is matched to clinical indication); or iterative reconstruction. Related Data Home Medications ?Medication ?Instructions ?Recorded ?Confirmed amlodipine 5 mg tablet 5 mg PO DAILY 01/25/2505/09 spironolactone 25 mg tablet 25 mg PO DAILY 01/25/25 metoprolol tartrate 50 mg tablet 25 mg (1/2 x 50 mg) P O BID #0 tabs 01/26/25 05/09/25 aspirin 81 mg tablet,delayed 81 mg PO DAILY 02/23/25 0 05/09/25 release (Adult Low Dose Aspirin) oxycodone 5 mg capsule 2.5 mg (1/2 x 5 mg) PO Q6H P RN #7 05/09/25 caps Previous Rx's ?Medication ?Instructions ?Recorded metoprolol tartrate 50 mg tablet 25 mg (1/2 x 50 mg) P O BID #0 tabs 01/26/25 oxycodone 5 mg capsule 2.5 mg (1/2 x 5 mg) PO Q6H P RN #7 05/09/25 caps Allergies Allergy/AdvReac Type Severity Reaction Status Date / Time No Known Allergies Allergy Unverified 05/09/25 07:23 General Stated Complaint: Nk/Back Pain KRAIG: 3 Course Vital Signs Vital signs: Vital Signs Temperature 36.1 C L 05/09/25 07:16 Pulse 57 L 05/09/25 07:16 Respiratory Rate 16 05/09/25 07:16 Blood Pressure 161/70 H 05/09/25 07:16 Pulse Oximetry 99 05/09/25 07:16 Temperature 36.1 C L 05/09/25 07:16 Temperature Source Tympanic 05/09/25 07:16 Pulse 57 L 05/09/25 07:16 Respiratory Rate 16 05/09/25 07:16 Blood Pressure 161/70 H 05/09/25 07:16 Blood Pressure Position Supine 05/09/25 07:16 Pulse Oximetry 99 05/09/25 07:16 Oxygen Delivery Method Room Air 05/09/25 07:16 Oxygen Flow Rate 0 05/09/25 07:16 Pain Level 0 05/09/25 07:22 Comment Pain only with movement 05/09/25 07:16 PFSH All Active Problems (Updated 05/09/25 @ 09:17 by Karthikeyan Lynne MD) Abnormal findings on diagnostic imaging of spine (Acute) Difficulty in walking (Acute) Sacroiliac joint pain (Acute) Back pain (Acute) PAD (peripheral artery disease) (Acute) Prostate cancer (Chronic) Brain TIA (Acute) Atrial fibrillation (Chronic) On deep vein thrombosis (DVT) prophylaxis (Acute) HTN (hypertension) (Chronic) Stroke (Chronic) Medical History (Updated 05/09/25 @ 09:17 by Karthikeyan Lynne MD) Discharge planning issues Hyperkalemia Surgical History (Updated 02/23/25 @ 23:23 by Lesley Abel MD) S/P prostatectomy Social History Smoking/Tobacco Use Status: Never Smoking risk assessment performed?: Yes Alcohol Intake: former Drug use: Never Substance use type: does not use Housing: house Do you feel safe at home: Yes Do you feel safe in your relationship?: Yes
[2025-05-09] MEDS: oxyCODONE 5 MG TAB 2.5 MG PO (08:05)
--- NOTE | 2025-05-09 08:30 | IN_ITS ---
PT Notes Visit Reasons: Tai-Back Pain Physical Therapy Emergency Department Initial Evaluation Date:05/10/2025 Referring Doctor: Karthikeyan Lynne MD PT Orders: PT CONSULT: Safety Consult for discharge Precautions: Fall. Standard. Activity as tolerated. Patient Profile/Admitting Diagnosis: Patient is 84-year-old male who presented to ED with report of pain in the R gluteal area that was triggered by standing up from a chair abruptly at home. CT scan of the spine showed diffuse disc bulge and degenerative changes at L4-L5 causing marked central spinal canal stenosis. There is mild bilateral neural foraminal stenosis at this level. PMHX: All Active Problems (Updated 05/09/25 @ 09:17 by Karthikeyan Lynne MD) Abnormal findings on diagnostic imaging of spine (Acute) Difficulty in walking (Acute) Sacroiliac joint pain (Acute) Back pain (Acute) PAD (peripheral artery disease) (Acute) Prostate cancer (Chronic) Brain TIA (Acute) Atrial fibrillation (Chronic) On deep vein thrombosis (DVT) prophylaxis (Acute) HTN (hypertension) (Chronic) Stroke (Chronic) Medical History (Updated 05/09/25 @ 09:17 by Karthikeyan Lynne MD) Discharge planning issues Hyperkalemia Surgical History (Updated 02/23/25 @ 23:23 by Lesley Abel MD) S/P prostatectomy Social History/Home Situation: Lives with in a private home with 5 steps to enter with rails. Independent with mobility ADLs using single-point cane. does laundry and meal prep. Equipment Owned/DME: [facility] Subjective: Pointed to the the R buttock close to the sacral area when asked where his pain was concentrated. Deniede headache, chest pain, and lightheadedness throughout session Objective: General Observation: Resting on stretcher with HOb elevated at 20 degrees Mental Status: Alert and Ox4 Pain: None reported ROM: Right Upper Extremity: Shoulder Flexion WFL. Shoulder abduction WFL. Elbow flexion WFL. Wrist flexion WFL. Functional opening and closing of hand WFL. Left Upper Extremity: Shoulder Flexion WFL. Shoulder abduction WFL. Elbow flexion WFL. Wrist flexion WFL. Functional opening and closing of hand WFL. Right Lower Extremity: Hip flexion WFL. Hip abduction WFL. Knee flexion WFL. Ankle dorsiflexion WFL. Ankle plantarflexion WFL. Left Lower Extremity: Hip flexion WFL. Hip abduction WFL. Knee flexion WFL. Ankle dorsiflexion WFL. Ankle plantarflexion WFL. Strength: Right Upper Extremity: Shoulder flexors 4-/5. Shoulder abductors 4-/5. Elbow flexors 4-/5. Elbow extensors 4-/5. Research Development Manager strong. Left Upper Extremity: Shoulder flexors 4-/5. Shoulder abductors 4-/5. Elbow flexors 4-/5. Elbow extensors 4-/5. Research Development Manager strong. Right Lower Extremity: Hip flexors 4-/5. Hip abductors 4-/5. Knee flexors 4-/5. Knee extensors 3/5. Ankle dorsiflexors 4-/5. Ankle plantarflexors 4-/5. Left Lower Extremity: Hip flexors 4-/5. Hip abductors 4-/5. Knee flexors 4-/5. Knee extensors 3/5. Ankle dorsiflexors 4-/5. Ankle plantarflexors 4-/5. Sensation: Intact as to pain and light pressure Bed Mobility/Transfers: Minimal cueing provided for use of B hands as needed for support, movement sequence, AD management, and posture to reduce fall risk and minimize pain report Supine to sit stand by assist Sit to stand stand by assist Stand to sit stand by assist Bed to chair stand by assist with FWW Gait: Stand by assist for navigating 100 feet of level surface ICU hallway with front- wheeled walker from room at ED to ED bathroom and back without LOB nor SOB. Steps appeared cautious and mildy antalgic, gait speed decreased. Reported increased discomfort in R buttock and R ssacral area that did not radiate down t highs and legs. Balance: Static Sitting: Normal Dynamic Sitting: Normal Static Standing: Fair Dynamic Standing: Fair Special Tests: Mobility Limitations Standardized Measure [facility] AM-PAC 6 clicks Basic Mobility Inpatient Short Form: Raw Score: 23 CMS Score:11% FABERE Test: Positive on R Negative on L 4-Stage balance Test: Feet together 10 seconds Semi-tancdem <10 seonds Full tandem deferred One-legged stance deferred Informed Consent/Education: Patient instructed in purpose of PT consult and plan of care. Agreeable to proceed with established PT POC to achieve personal goals. Assessment: Leandro reported pain in R gluteal area and R sacral area with R Patrcik's test but with no radiation of pain to the R leg. Palpation of the R lumbar and R gluteal area was negative for any tenderness. Strength testing of the B LE did show weakness which patient said has been ongoing. Patient was able to naviagte short distances, managed to pull his pants up and down for otiletting and was able to walk back to his room using the FWW. Patient's use of SPC may have contributed to unequal trunk and pelvic muscle support and this, along with L4- L5 disc pathology as well as L4-L5 central spinal stenosis have contributed to pain felt that prompted this admission. Patient will benefit from HH PT for continued functional mobility training, balance, and strength training. Coordinated with referring MD regarding services and AD recommendation for safety.[id number] x 20 inutes for Patient presents with clinical signs and symptoms consistent with current/admitting diagnoses that have resulted to mobility limitations, gait instability, generalized weakness, and impairment of motor control as demonstrated by the following impairment level findings: 1. Decreased strength to BLE major muscle groups 2. Impaired standing balance Impairments are contributing to the following functional limitations: 1. Increase completion time for mobility ADL performance 2. Increased fall risk Patient is assessed as a 11421 moderate complexity based on the following: History: 84-year-old male with impairment level findings, functional limitations, and past medical history as indicated above Examination: Demonstrable impairment in strength, balance, and mobility level with underlying impairments and functional limitations as documented above Presentation: Evolving Decision Makin moderate complexity Goals: N/A. PT evaluation and 1-2 treatment sessions only for functional mobility training using recommended AD and for HEP instruction. Plan of Care/Treatment Plan: N/A. PT evaluation and 1-2 treatment session only for functional mobility training using recommended AD and for HEP instruction. DISCHARGE RECOMMENDATIONS: HH PT TREATMENT CODE/TIME: 70554 x 20 minutes for 1 unit, 04636 x 23 minutes for 2 units (8:30-9:13). Thank you for the opportunity to participate in the care of this patient. Jessica Encinas PT, DPT, CLT [facility] [place], [place]
[2025-05-09 09:36] VITALS: BP 136/89; PULSE 60; RESP 12; O2SAT 100
--- NOTE | 2025-05-30 06:35 | NUR.NOTE ---
Accessed Pt chart to print the discharge note to submit to [facility]
== END 2025-05-09 09:40 | disposition left against medical advice (07) ==
PROVIDERS: Emergency Provider General Practice; PCP Internal Medicine
DX: M53.3 Sacrococcygeal disorders, not elsewhere classified (principal); M54.9 Dorsalgia, unspecified; R26.2 Difficulty in walking, not elsewhere classified; R93.7 Abnormal findings on diagnostic imaging of other parts of musculoskeletal system
CPT/HCPCS: 99284 ×2; 97162; 97530; 72131